=== PATIENT | female | born 1960 ===

== ENCOUNTER 2018-04-23 14:12 | Outpatient (CLI) | payer OTHER ==
[~2018-04-23] VITALS: Ht 157.5 cm; Wt 64.4 kg
== END 2018-04-23 14:30 | disposition home or self-care (01) ==
LOC: OFIC 805 14:12
DX: F45.8 Other somatoform disorders (principal); K21.0 Gastro-esophageal reflux disease with esophagitis

== ENCOUNTER 2018-06-04 12:08 | Outpatient (CLI) | payer OTHER ==
[~2018-06-04] VITALS: Ht 152.4 cm; Wt 64.4 kg
== END 2018-06-04 12:25 | disposition home or self-care (01) ==
LOC: OFIC 805 12:08
DX: K21.9 Gastro-esophageal reflux disease without esophagitis (principal); F45.8 Other somatoform disorders